=== PATIENT | male | born 1975 | race Caucasian/White ===

== ENCOUNTER → 2023-11-06 12:19 | Outpatient (REF) | payer BC, SELFPAY | LOC: HWRAD 12:19 | PROVIDERS: ATTENDING PHYSICIAN Physician Assistant Medical; FAMILY PHYSICIAN Nurse Practitioner | DX: R10.12 Left upper quadrant pain (principal) | CPT/HCPCS: 74160; Q9967 ==

== ENCOUNTER 2024-07-30 10:34 | Emergency (ER) | payer BC, SELFPAY ==
[2024-07-30 10:52] VITALS: BP 139/89
[2024-07-30] MEDS: ADACEL 0.5 ML IM (13:26)
[2024-07-30] MEDS: AUGMENTIN 875 MG/125 MG 1 TABLET PO (13:28)
--- NOTE | 2024-07-30 14:35 | ED.SKININJ ---
HPI-Injury
General
Chief Complaint: Bite
Source: patient and spouse
Exam Limitations: none
Time Seen by Provider: 07/30/24 12:36
Nursing documentation reviewed up to this point in time: agreed with
History of Present Illness-Injury
Is this injury a work related problem?: No
Is pt an associate of [facility]?: No
Initial Injury comments:
48-year-old male presenting to the emergency department after being bit by his own dog prior to arrival. He claims he was breaking up a fight between his dogs otherwise doctor acting normally and up-to-date with her vaccinations. Bite wounds to
his left distal arm.
Past History
Past History
ED Past Medical History: HTN
ED Past Surgical History: Other (sinus surgery 06/25)
Patient has exhibited threatening behavior?: No
Social History
Tobacco: Non-smoker
Alcohol: Occasional
Drug: None
Personal:
Living: with family
Employment: Employed
Review of Systems
Review of Systems
Allergies reviewed?: Yes
All Other Systems: ROS reviewed and negative except as documented in HPI and ROS
Phy Exam
Physical Exam
Physical Exam:
GENERAL: Alert , in no apparent distress
EYE: pupils equal and reactive
NECK: Supple, no significant adenopathy.
ENT: o/p clr, mmm.
CARDIAC: Regular rate and rhythm .
LUNGS: Clear breath sounds bilaterally, no acute respiratory distress, no wheezes/rales/rhonchi
ABDOMEN: Soft, without focal tenderness, no r/g, no cvat
NEUROLOGICAL: Alert and oriented, no focal neuro deficits
SKIN: Laceration to the left upper extremity there is a 2.5 cm laceration to the proximal portion of the dorsal hand subcutaneous in depth 2 cm laceration between the first and second digits in the webspace. Additional 2 cm laceration to the distal
forearm on the radial aspect laterally. Subcutaneous in depth no foreign bodies warm and dry, skin intact.
MUSCULOSKELETAL: No edema, well perfused.
PSYCH: Normal and appropriate interaction.
Course
Orders/Labs/Results
Orders:
Orders
07/30/24
Electrocardiogram (*1) Stat
Comment: DONE EMR
07/30/24 12:55
Amoxicillin 875 mg/Clav 125 mg [Augmentin 875 mg/125 mg] 1 tablet PO NOW STA
Tetanus/Diphth/Acelpertussis [Adacel] 0.5 ml IM .ONCE ONE
CR Hand - Left 2 Views Urgent
Comment:
Reason For Exam: dog bite
Vital Signs
Initial and Last Documented VS:
Initial Vital Signs
Temp Pulse Resp BP Pulse Ox
98 F 66 18 139/89 98
07/30/24 10:52 07/30/24 10:52 07/30/24 10:52 07/30/24 10:52 07/30/24 10:52
Last Documented Vital Signs
Temp Pulse Resp BP Pulse Ox
98 F 66 18 139/89 98
07/30/24 10:52 07/30/24 10:52 07/30/24 10:52 07/30/24 10:52 07/30/24 10:52
Procedures
Laceration Closure
Left Dorsal Hand:
Status of Wound: clean
Size of Wound in cm: 2.5
Description of Wound Edges: sharp
Preparation: cleaned with saline
Anesthesia: 1% Lidocaine with epi
Revision/Debridement: routine- no revision and irrigate-direct pressure
Wound exploration: explored to base- no FB and no tendon involvement
Type of Closure: single layer closure
Skin Closure Material: 4-0 vicryl
Number of sutures: 2
Left Distal Hand:
Status of Wound: clean
Size of Wound in cm: 2
Description of Wound Edges: flap-well vascularized
Preparation: cleaned with saline
Anesthesia: 1% Lidocaine with epi
Revision/Debridement: routine- no revision and irrigate-direct pressure
Wound exploration: explored to base- no FB and no tendon involvement
Type of Closure: single layer closure and interrupted sutures
Skin Closure Material: 4-0 vicryl
Number of sutures: 3
MDM/Problems Addressed
MDM/Problems Addressed:
48-year-old male presenting to the emergency department after being bit by his dog prior to arrival. Multiple wounds to his hand. X-ray without signs of retained foreign body or fracture. Area was anesthetized he then ran his hand underneath the
sink for multiple minute I did further irrigation with no signs of foreign body. There is significant gaping of the wounds to his hand. These were very loosely approximated after the risks and benefit of this were discussed thoroughly with the
patient who is in agreement for loosely approximating the area considering they were very wide open thus loose closure would be helpful for healing. I was careful when suturing to not fully closes to allow for continued drainage to reduce risk of
infection. He was immediately started on Augmentin and written a prescription for this to reduce risk of infection. His dogs are vaccinated and are very low risk for rabies and he was not started on rabies prophylaxis. He was also given an
updated tetanus shot. Very strict return precautions were discussed with the patient who demonstrated agreement with the plan.
*Critical Care Note
Total Time (30-74mins, 75-104mins- exclusive of procedures): Not Applicable
ED Attending Note
-
Portions of this chart may have been created with voice recognition software.� Occasional wrong word or��sound alike� substitutions may have occurred due to the inherent limitations of voice recognition software.
Discharge Plan
Departure
Patient Disposition: Home (Routine Discharge)
Date of Disposition: 07/30/24
Time of Disposition: 14:39
Patient with high blood pressure during this ER visit?: No
Condition: Good
Covid-19: Not Applicable
Discharge Problem:
Dog bite, hand
Instructions: Animal and human bites, Laceration Repair With Stitches (DC)
Prescriptions:
New
amoxicillin-pot clavulanate 875-125 mg tablet
1 tab PO BID 3 Days Qty: 6 0RF
No Action
cetirizine 10 MG tablet
10 mg PO HS
esomeprazole magnesium [Nexium] 40 MG capsule,delayed release(DR/EC)
40 mg PO HS
escitalopram oxalate 10 MG tablet
10 mg PO HS
losartan-hydrochlorothiazide 1 EACH tablet
1 ea PO HS
cannabidiol [Epidiolex] 1 UNIT solution
1 unit PO HS
albuterol sulfate 1 PUFF HFA aerosol inhaler
2 puff inhalation PRN PRN (Reason: SOB)
fluticasone propionate 1 SPRAY spray,suspension
1 spray intranasal PRN PRN (Reason: congestion)
docosahexaenoic acid-epa 1 CAP capsule
1 cap PO DAILY
mecobalamin (vitamin B12) [B12 Active] 1,000 MCG tablet,chewable
1 tab PO DAILY
wvkoiodu-jtq-iwvb fum-folic ac 1 EACH tablet
1 ea PO DAILY
Referrals:
Rachelle Ibarra CRNP [Family Provider] -
Activity Restrictions/Additional Instructions:
You came to the emergency department today with concerns of being bit by her dog. This was cleaned thoroughly here you had 5 total dissolving stitches placed that were loosely approximated to allow for continued drainage. Please keep the area
clean covered and follow-up closely for reassessment in 1 to 2 weeks. Return immediately for any worsening, new or concerning symptoms.
Interventions
Interventions:
*Risk Screen - Suicide Last Done: 07/30/24 13:25
*General Assessment Last Done: 07/30/24 13:25
*Neglect/Abuse Screening Last Done: 07/30/24 13:25
*ED COVID-19 Vaccine History Last Done: 07/30/24 13:25
ED-Skin Assessment Last Done: 07/30/24 13:32
Discharge Date and Time
Print Language: AMHARIC
== END 2024-07-30 15:04 | disposition home or self-care (01) ==
LOC: EMR 10:34
PROVIDERS: EMERGENCY PHYSICIAN Emergency Medicine; FAMILY PHYSICIAN Nurse Practitioner
DX: S61.459A Open bite of unspecified hand, initial encounter (principal); W54.0XXA Bitten by dog, initial encounter; Z23 Encounter for immunization; I10 Essential (primary) hypertension
CPT/HCPCS: 99283; 12001; 90471; 73120; 90715; 93005

== ENCOUNTER → 2025-03-23 06:51 | Outpatient (REF) | payer BC, SELFPAY | LOC: DHSLP 06:51 | PROVIDERS: ATTENDING PHYSICIAN Internal Medicine; FAMILY PHYSICIAN Internal Medicine | DX: G47.33 Obstructive sleep apnea (adult) (pediatric) (principal); G47.61 Periodic limb movement disorder | CPT/HCPCS: 95810 ==

== ENCOUNTER → 2025-04-29 13:58 | Outpatient (REF) | payer BC, SELFPAY | LOC: HWRAD 13:58 | PROVIDERS: ATTENDING PHYSICIAN Nurse Practitioner Family; FAMILY PHYSICIAN Nurse Practitioner Family | DX: R05.9 Cough, unspecified (principal); R07.81 Pleurodynia | CPT/HCPCS: 71046; 71100 ==